=== PATIENT | male | born 1990 | race Two or more races ===

== ENCOUNTER 2024-06-25 13:48 | Inpatient (IN) | payer MEDICAID, SELFPAY ==
[2024-06-25] VITALS (7 sets, daily range): BP systolic 118–134; BP diastolic 61–83; PULSE 73–82; RESP 16–20; TEMP 36.7–37; O2SAT 95–100; BMI 35.6; BMI 36.6
--- NOTE | 2024-06-25 14:02 | XR_ITS ---
Examination: CT abdomen and pelvis without contrast. Coronal 3-D reconstructions. Sagittal 2-D reconstructions. Date and time of exam:June 25, 2024 1527 hours INDICATIONS: Upper abdominal pain epigastric pain beginning 2 hours ago CTDI: vol (mGy): 10.3 DLP: (mGycm): 690 Technique: Axial images of the abdomen have been obtained, 3 mm slice thickness Intravenous contrast material has not been administered. Low dose protocols were performed. One or more of the following dose reduction techniques were used; automated exposure control, adjustment of the mA and/or KV according to patient size, use of iterative reconstruction technique. Findings: Diffuse fatty infiltration throughout the liver Small retrocardiac gastric hernia Spleen is not enlarged No pancreatic mass Suspicious for mild edema surrounding the pancreas No renal or ureteral calculi, no hydronephrosis Aorta normal size 20 mm fat-containing umbilical hernia No pericecal inflammatory change No bowel obstruction Contracted urinary bladder No prostatomegaly The osseous structures are intact IMPRESSION: Suspicious for mild acute pancreatitis, consider MRCP follow-up
--- NOTE | 2024-06-25 14:03 | PD.EDRME ---
Rapid Medical Screening Exam RME Arrival date/time: 06/25/24 13:48 33-year-old male presents to the emergency department complaints of generalized abdominal pain Chief Complaint: Abdominal Pain Time Seen by Provider: 06/25/24 13:59
[2024-06-25] MEDS: METOCLOPRAMIDE 5 MG TABLET 10 MG PO (14:09)
[2024-06-25] MEDS: HYDROcodone/APAP 5/325 TABLET 1 TAB PO (14:09)
[2024-06-25 14:37] LABS: Basophils % (Auto) 0 % (0-2.5); Eosinophils # (Auto) 0.1 Thou/mm3 (0.0-0.5); Eosinophils % (Auto) 0 % (0-10); Hematocrit 44.8 % (41.0-53.0); Immature Granulocytes % (Auto) 0 % (0-0); Immature Granulocytes Auto 0.04 Thou/mm3 (0.00-0.00); Lymphocytes # (Auto) 1.8 Thou/mm3 (1.0-4.8); Lymphocytes % (Auto) 13 % (10-50); Mean Corpuscular HGB Conc 35.7 g/dl (31.0-37.0); Mean Corpuscular Hemoglobin 30.3 pg (25.0-35.0); Mean Corpuscular Volume 85 fL (80-100); Monocytes # (Auto) 0.7 Thou/mm3 (0.0-0.8); Monocytes % (Auto) 5 % (0-12); Neutrophils % (Auto) 81 % (37-80); Nucleated Red Blood Cell % 0 /100 WBC (0); Platelet Count 295 Thou/mm3 (140-440); RDW Standard Deviation 37.8 fL (35.1-43.9); Red Blood Count 5.28 Miln/mm3 (4.50-5.90); White Blood Count 13.6 Thou/mm3 (3.8-10.6)
[2024-06-25 14:59] LABS: Collection Type, Urine Clean Catch; Squamous Epithelial Cell,Urine 0 /hpf (0-5)
[2024-06-25 15:07] LABS: Alanine Aminotransferase 246 U/L (10-49); Albumin, Serum 5.1 gm/dL (3.5-5.0); Albumin/Globulin Ratio 1.8 (1.2-2.2); Alkaline Phosphatase 135 U/L (46-116); Anion Gap 9 (7-16); Aspartate Amino Transferase 249 U/L (0-34); BUN/Creatinine Ratio 14 Ratio (12-20); Blood Urea Nitrogen 14 mg/dL (9-23); Calcium 9.7 mg/dL (8.3-10.6); Calcium (Corrected) 9.7 mg/dL (8.5-10.1); Carbon Dioxide 26.6 mMol/L (20.0-31.0); Chloride 103 mMol/L (98-107); Estimated Creatinine Clearance 118.2 mL/min (>60); Globulin 2.9 gm/dL (2.3-3.5); Glucose 155 mg/dL (74-106); Lipase > 3500 U/L (12-53); Osmolality,Calculated 281 (275-295); Potassium 3.6 mMol/L (3.4-5.1); Sodium 139 mMol/L (136-145); eGFR > 60 See Note
[2024-06-25 15:35] LABS: Amphetamine/Methamp Scrn,U Negative (Negative); Barbiturate Screen,Urine Negative (Negative); Benzodiazepines Screen,Urine Negative (Negative); Benzoylecgonine Screen, Ur Negative (Negative); Bilirubin,Urine Negative (Negative); Blood,Urine Negative (Negative); Clarity,Urine Clear (Clear/Hazy); Color,Urine Yellow (Lt Yel-Yel); Culture Indicated,Urine Not Indicated; Fentanyl Screen,Urine Negative (Negative); Glucose, Urine Negative (Negative); Ketones,Urine Negative (Negative); Leukocyte Esterase,Urine Negative (Negative); Nitrite,Urine Negative (Negative); Opiate Screen,Urine Negative (Negative); Protein,Urine 1+ (Neg - Trace); RBC,Urine 5 /hpf (0-3); Specific Gravity,Urine 1.028 (1.001-1.035); THC Screen,Urine Negative (Negative); WBC,Urine 3 /hpf (0-5)
[2024-06-25 16:18] LABS: Alcohol, Blood Medical < 3.0 mg/dL (0-10.0)
--- NOTE | 2024-06-25 18:07 | EDNOTE_ITS ---
ED General RME/HPI General Chief complaint: Abdominal Pain Stated complaint: ABD PAIN Time Seen by Provider: 06/25/24 13:59 Arrival date/time: 06/25/24 13:48 CC: Left upper quadrant abdominal pain with nausea vomiting HPI onset approximately 10 AM this morning, and a prior episode 1 week ago was seen at another facility was told he had gastritis discharged home with medications which provided no relief. The patient denies any alcohol other than weekends, patient denies smoking or street drugs. at bedside confirms this. Patient takes no chronic medications. Denies fever shortness of breath or difficulty breathing. Is complaining of pain radiating up into the chest. Currently pain is 8 to a 10 on a 10 scale. Patient is not diaphoretic. But clearly uncomfortable. RME / HPI RME / HPI narrative: 06/25/24 13:48 33-year-old male presents to the emergency department complaints of generalized abdominal pain Related Data Allergies Allergy/AdvReac Type Severity Reaction Status Date / Time No Known Allergies Allergy Verified 06/25/24 13:49 Review of Systems Review of Systems Narrative Review of Systems: GEN: No fever, no chills, no weight loss EYES: No discharge, no visual changes, no pain HEENT: No ear pain, no congestion, no sore throat PULM: No shortness of breath, no cough, no congestion CV: No chest pain, no dyspnea on exertion, no palpitations GI: No nausea, no vomiting, no diarrhea, + pain, no constipation : No frequency, no urgency, no dysuria MUSC/SKEL: No joint pain, no back pain SKIN: No rash PSYCH: No hallucinations, no depression HEME/LYMPH: No easy bleeding or bruising tendencies NEURO: No weakness, no headache Past Medical History Social History SMOKING STATUS: Never smoker ED Exam Narrative Physical exam: [General: Obese not in any acute distress Head normocephalic HEENT: Within acceptable limits Neck is supple nontender Chest equal chest rise nontender to palpation Respiratory: Clear to auscultation no wheezes crackles or rubs CV: Rate rhythm is regular no murmurs rubs or clicks Abdomen left upper quadrant exquisite tenderness with palpation reflexive guarding but no rebound tenderness, no right upper quadrant or lower abdomen pain with palpation. Back: No CVA tenderness no spinous process tenderness from cervical spine thoracic and lumbar spine Skin: Intact no petechiae rash induration ulceration or crepitus Extremities: Moving all extremity against resistance cap refill less than 2 seconds neurosensory intact Neuro: Awake alert oriented x3 Glascow coma 15 no focal deficits] Course Quality Measures none Orders Category Date Time Status Saline [Insert IV] NOW Care 06/25/24 18:[address] abdomen pelvis wo con Stat Exams 06/25/24 14:02 Completed US gall bladder Routine Exams 06/25/24 19:58 Ordered Alcohol, Blood Medical Stat Lab 06/25/24 14:15 Completed CBC Stat Lab 06/25/24 14:15 Completed Comprehensive Metabolic Panel Stat Lab 06/25/24 14:15 Completed Drug Screen,Urine Stat Lab 06/25/24 14:30 Completed Lipase Stat Lab 06/25/24 14:15 Completed Lipid Panel Stat Lab 06/25/24 14:15 Completed UA, C/S IF [Urinalysis, C/S if Indicated] Stat Lab 06/25/24 14:30 Completed HYDROcodone*/APAP 5/325 [[place] 5/325] Med 06/25/24 14:02 Discontinued 1 tab PO X1 ONE Metoclopramide [Reglan] Med 06/25/24 14:02 Discontinued 10 mg PO X1 ONE Morphine Inj Med 06/25/24 18:05 Discontinued 6 mg IVP X1 ONE Ondansetron Inj [Zofran Inj] Med 06/25/24 18:05 Discontinued 4 mg IV X1 ONE Sodium Chloride 0.9% 1000 ml [Ns] 1,000 ml Med 06/25/24 18:06 Active IV 125 mls/hr Sodium Chloride 0.9% 1000 ml [Ns] 1,000 ml Med 06/25/24 18:05 Discontinued IV 999 mls/hr Vital Signs Vital signs: Vital Signs Temperature 98.0 F 06/25/24 14:03 Pulse Rate 82 06/25/24 14:03 Respiratory Rate 16 06/25/24 14:03 Blood Pressure 134/82 H 06/25/24 14:03 Pulse Oximetry (%) 95 06/25/24 14:03 Oxygen Delivery Method Room Air 06/25/24 14:03 [facility] Patient data External records reviewed:: [facility] previous records Clinical information provided by:: patient Social determinants that could affect healthcare access:: none Patient has the following chronic illnesses:: None How is presenting disease/condition affected by chronic disease/condition?: u neffected by Evaluation data The following diagnostics were reviewed and interpreted by me:: lab results and radiology exam(s) Lab and/or radiology exams considered but not ordered:: CBC shows mild leukocytosis of 13.6, no anemia thrombocytopenia CMP shows no electrolyte imbalances renal impairment transaminitis is elevated with an AST of 249 ALT of 246 and alk phos of 135 total bili is 1.0. Lipase is greater than 3500. Urine is negative with the exception of 1+ protein. UDS is negative. CT shows pancreatitis Interpretation Summary: Acute pancreatitis. Patient's case discussed with Dr. Bae, for Dr. Humphrey who agrees to accept the patient for admission. Patient is in agreement with this plan Medications Medications considered but not ordered:: None Medication administrations:: Medication Administration History Sodium Chloride (Ns) 1,000 mls @ 125 mls/hr IV .Q8H TY Stop: 07/25/24 18:05 Last Admin: 06/25/24 18:33 Dose: 125 mls/hr Documented By: SHOAIB Discontinued Medications Hydrocodone Bitart/Acetaminophen (Hydrocodone/Apap 5/325 Tablet) 1 tab PO X1 ONE Stop: 06/25/24 14:03 Last Admin: 06/25/24 14:09 Dose: 1 tab Documented By: SHOAIB Sodium Chloride (Ns) 1,000 mls @ 999 mls/hr IV .Q1H1M ONE Stop: 06/25/24 19:05 Last Infusion: 06/25/24 19:46 Dose: Infused Documented By: Admin: 06/25/24 18:29 Dose: 999 mls/hr Documented By: SHOAIB Metoclopramide HCl (Metoclopramide 5 Mg Tablet) 10 mg PO X1 ONE Stop: 06/25/24 14:03 Last Admin: 06/25/24 14:09 Dose: 10 mg Documented By: SHOAIB Morphine Sulfate (Morphine Sulf Inj 10 Mg/Ml Vial) 6 mg IVP X1 ONE Stop: 06/25/24 18:06 Last Admin: 06/25/24 18:29 Dose: 6 mg Documented By: SHOAIB Ondansetron HCl (Ondansetron Inj 2 Mg/Ml Inj 2 Ml) 4 mg IV X1 ONE; Protocol Stop: 06/25/24 18:06 Last Admin: 06/25/24 18:29 Dose: 4 mg Documented By: RD None Consultations Consultation(s) initiated? (list below): No Diagnosis Differential Diagnosis ED Complaint MDM: Pancreatitis, left upper quadrant abdominal pain leukocytosis Most likely diagnosis given after review of the tests above:: Pancreatitis, left upper quadrant abdominal pain Admission Indicated Admission indicated?: indicated Explain why admission is indicated or not indicated:: Quires further medical management Admission Request Was there a request for admission?: No Disposition Plan Disposition Plan: Admit Medical Decision Making Differential Diagnosis Differential Diagnosis: Pancreatitis, left upper quadrant abdominal pain leukocytosis Lab Data 06/25/24 14:15 06/25/24 14:15 Labs: Lab Results 06/25/24 06/25/24 Range/Units 14:15 14:30 WBC 13.6 H (3.8-10.6) Thou/mm3 RBC 5.28 (4.50-5.90) Miln/mm3 Hgb 16.0 (13.5-16.0) g/dL Hct 44.8 (41.0-53.0) % MCV 85 (80-100) fL MCH 30.3 (25.0-35.0) pg MCHC 35.7 (31.0-37.0) g/dl RDW Std Deviation 37.8 (35.1-43.9) fL Plt Count 295 (140-440) Thou/mm3 Neut % (Auto) 81 H (37-80) % Lymph % (Auto) 13 (10-50) % Morris % (Auto) 5 (0-12) % Eos % (Auto) 0 (0-10) % Baso % (Auto) 0 (0-2.5) % Neut # (Auto) 11.0 H (1.8-7.7) Thou/mm3 Lymph # (Auto) 1.8 (1.0-4.8) Thou/mm3 Morris # (Auto) 0.7 (0.0-0.8) Thou/mm3 Eos # (Auto) 0.1 (0.0-0.5) Thou/mm3 Baso # (Auto) 0.0 (0.0-0.2) Thou/mm3 Immature Gran # (Auto) 0.04 H (0.00-0.00) Thou/mm3 Absolute Nucleated RBC 0.00 (0.00-0.00) Thou/mm3 Immature Gran % 0 (0-0) % Nucleated RBC % 0 (0) /100 WBC Sodium 139 (136-145) mMol/L Potassium 3.6 (3.4-5.1) mMol/L Chloride 103 (98-107) mMol/L Carbon Dioxide 26.6 (20.0-31.0) mMol/L Anion Gap 9 (7-16) BUN 14 (9-23) mg/dL Creatinine 1.0 (0.6-1.3) mg/dL Estim Creat Clear Calc 118.2 (>60) mL/min eGFR > 60 (60 - ) See Note BUN/Creatinine Ratio 14 (12-20) Ratio Glucose 155 H (74-106) mg/dL Calculated Osmolality 281 (275-295) Calcium 9.7 (8.3-10.6) mg/dL Corrected Calcium 9.7 (8.5-10.1) mg/dL Total Bilirubin 1.0 (0.3-1.2) mg/dL AST 249 H (0-34) U/L ALT 246 H (10-49) U/L Alkaline Phosphatase 135 H (46-116) U/L Total Protein 8.0 (5.7-8.2) gm/dL Albumin 5.1 H (3.5-5.0) gm/dL Globulin 2.9 (2.3-3.5) gm/dL Albumin/Globulin Ratio 1.8 (1.2-2.2) Triglycerides 335 H (30-150) mg/dL Cholesterol 252 H (132-200) mg/dL LDL Cholesterol, Calc 145 H (0-130) mg/dL HDL Cholesterol 40 (40-60) mg/dL Cholesterol/HDL Ratio 6.3 (4.0-6.7) RATIO Lipase > 3500 H* (12-53) U/L Ur Collection Type Clean Catch Urine Color Yellow (Lt Yel-Yel) Urine Clarity Clear (Clear/Hazy) Urine pH 6.0 (5.0-7.0) Ur Specific [place] 1.028 (1.001-1.035) Urine Protein 1+ A (Neg - Trace) Urine Glucose (UA) Negative (Negative) Urine Ketones Negative (Negative) Urine Blood Negative (Negative) Urine Nitrite Negative (Negative) Urine Bilirubin Negative (Negative) Urine Urobilinogen (Auto) 2.0 (0.0-1.0) mg/dL Ur Leukocyte Esterase Negative (Negative) Urine RBC 5 H (0-3) /hpf Urine WBC 3 (0-5) /hpf Ur Squamous Epith Cells 0 (0-5) /hpf Urine Bacteria None (None) Ur Culture Indicated? Not Indicated Urine Opiates Screen Negative (Negative) Urine Fentanyl Screen Negative (Negative) Ur Barbiturates Screen Negative (Negative) U Amphetamin/Meth Scrn Negative (Negative) U Benzodiazepines Scrn Negative (Negative) U Cocaine Metab Screen Negative (Negative) U Marijuana (THC) Screen Negative (Negative) Ethyl Alcohol < 3.0 (0-10.0) mg/dL Discharge Plan Plan Patient Disposition: Other Care w/in Hosp ([facility]) Patient condition on transfer: Stable Prescriptions/Referrals Referrals: Benjamin Trevino MD [Primary Care Provider] - In 1 week Problem List Clinical Impression: Pancreatitis, Abdominal pain, acute, left upper quadrant Patient/Caregiver Discharge Instructions Print Language: Ivorian Stand Alone Forms: Iveth Award Info., Patient Portal Info Letter RAUL/BERTHA Supervising Physician RAUL/BERTHA Supervising Physician: Gunnar Velasco ENP
[2024-06-25] MEDS: ONDANSETRON INJ 2 MG/ML INJ 2 ML 4 MG IV ×2 (18:29→21:33)
[2024-06-25] MEDS: SODIUM CHLORIDE 0.9% 1000 ML 1,000 ML 999 ML IV (18:29)
[2024-06-25] MEDS: MORPHINE SULF INJ 10 MG/ML VIAL 6 MG IVP (18:29)
[2024-06-25] MEDS: SODIUM CHLORIDE 0.9% 1000 ML 1,000 ML 125 ML IV (18:33)
[2024-06-25 19:21] LABS: Cardiac Risk Estimate 6.3 RATIO (4.0-6.7); Cholesterol 252 mg/dL (132-200); HDL Cholesterol 40 mg/dL (40-60); LDL Cholesterol,Calculated 145 mg/dL (0-130); Triglycerides 335 mg/dL (30-150)
--- NOTE | 2024-06-25 19:58 | XR_ITS ---
Examination: Abdomen sonogram, Limited Date and time of exam: June 25, 2024 2110 hrs. Indications: Epigastric pain with tenderness today including elevated liver function tests on laboratory examination today Technique: Real-time perry scale transabdominal sonographic images of the upper abdomen obtained. Findings: Cholelithiasis Gallbladder wall 0.3 cm no edema Common bile duct 0.7 cm Pancreas obscured by bowel gas Liver 18.3 cm fatty infiltration Normal hepatopedal portal venous flow Patent IVC Impression: Cholelithiasis, negative for cholecystitis Abnormal enlargement common bile duct 0.7 cm, consider MRCP follow-up to exclude common bile duct stones
--- NOTE | 2024-06-25 20:30 | ESHP_ITS ---
Documentation for date of: 06/25/24 HPI History of Present Illness Chief complaint: Abdominal pain History of present illness: 33-year-old male with no significant past medical history presented to the hospital with chief complaints of abdominal pain since 1 day. Patient was apparently normal 1 day ago, on the day of admission patient developed severe abdominal pain, mainly on the left side and middle of the abdomen, associated with 1 episode of vomiting which is bilious. Endorsed that the pain is radiating to right side of abdomen with no radiation to back. No aggravating or relieving factors. Denies fever, vomiting, diarrhea, chest pain, palpitations, shortness of breath, constipation, relationship with food intake. Patient had past history of abdominal pain since 5 to 6 months which is mainly located in the epigastric region, burning type, aggravated with food intake but endorsed that this new pain is different from the pain that he used to have during the last 5 to 6 months. Endorsed that he used to take ibuprofen once in a while. Last alcohol drink was 4 or 5 days ago ED Course: -Initial vitals were blood pressure 134/82 mmHg, pulse rate 82 bpm, respiratory rate 16/min, temperature 98 ?F, SpO2 95% with room air -Labs significant for WBC 13.6, glucose 155, AST 249, ALT 246, ALP 135, LDH 220, triglycerides 335, cholesterol 252, LDL 145, lipase > 3500. Urinalysis showed 1+ proteinuria, 5 RBC. Urine tested negative for toxicology. -CT abdomen/pelvis showed suspicion for mild acute pancreatitis. Gallbladder ultrasound showed cholelithiasis with CBD of 0.7 cm -In the ED, patient was given IV fluids and morphine -Patient was admitted for acute pancreatitis Past medical history: Nonsignificant Past surgical history: not significant Social history: Drinks once in a week, about 10-14 beers in 1 sitting, denies smoking, marijuana, other illicit drug abuse. Review of Systems Review of Systems Systems Reviewed: All systems reviewed, normal except as documented Exam Vital Signs Temp Pulse Resp BP Pulse Ox O2 Del Method 98.6 F 73 18 126/80 97 Room Air 06/25/24 19:17 06/25/24 19:17 06/25/24 19:17 06/25/24 19:17 06/25/24 19:17 06/25/24 19:17 Narrative Exam General: Awake. HEENT: Normocephalic, atraumatic, mucous membranes moist. Heart: Regular rate and rhythm, no murmurs. Lungs: Clear to auscultation with no wheezing or crackles. Abdomen: Soft, nondistended, tenderness in the epigastric region, positive bowel sounds. ?No guarding or rebound tenderness. Neurologic: Alert and oriented x3, no gross neurological deficit, and patient able to move all 4 extremities. Extremities: No edema. Skin: No rash or ecchymoses. Results: Labs 06/25/24 14:15 06/25/24 14:15 Labs: Short CBC 06/25/24 Range/Units 14:15 WBC 13.6 H (3.8-10.6) Thou/mm3 Hgb 16.0 (13.5-16.0) g/dL Hct 44.8 (41.0-53.0) % Plt Count 295 (140-440) Thou/mm3 BMP 06/25/24 14:15 Sodium 139 Potassium 3.6 Chloride 103 Carbon Dioxide 26.6 BUN 14 Creatinine 1.0 Glucose 155 H Calcium 9.7 Liver Function 06/25/24 Range/Units 14:15 Total Bilirubin 1.0 (0.3-1.2) mg/dL AST 249 H (0-34) U/L ALT 246 H (10-49) U/L Alkaline Phosphatase 135 H (46-116) U/L Albumin 5.1 H (3.5-5.0) gm/dL Urine 06/25/24 Range/Units 14:30 Urine Color Yellow (Lt Yel-Yel) Urine Clarity Clear (Clear/Hazy) Urine pH 6.0 (5.0-7.0) Ur Specific [place] 1.028 (1.001-1.035) Urine Protein 1+ A (Neg - Trace) Urine Glucose (UA) Negative (Negative) Quality Measures Quality Measures none Medications Home Medications and Allergies Allergies Allergy/AdvReac Type Severity Reaction Status Date / Time No Known Allergies Allergy Verified 06/25/24 13:49 Visit Medications Acetaminophen (Acetaminophen 325 Mg Tablet) 650 mg PO Q6H PRN PRN Reason: Fever >101.5 Stop: 07/25/24 20:25 Sodium Chloride (Ns) 1,000 mls @ 125 mls/hr IV .Q8H TY Stop: 07/25/24 18:05 Last Admin: 06/25/24 18:33 Dose: 125 mls/hr Morphine Sulfate (Morphine Sulf Inj 10 Mg/Ml Vial) 2 mg IVP Q4H PRN PRN Reason: PAIN SCALE 7-10 (Severe Stop: 06/30/24 20:25 Ondansetron HCl (Ondansetron Inj 2 Mg/Ml Inj 2 Ml) 4 mg IV Q6H PRN; Protocol PRN Reason: NAUSEA OR VOMITING Stop: 07/25/24 20:25 Discontinued Medications Hydrocodone Bitart/Acetaminophen (Hydrocodone/Apap 5/325 Tablet) 1 tab PO X1 ONE Stop: 06/25/24 14:03 Last Admin: 06/25/24 14:09 Dose: 1 tab Sodium Chloride (Ns) 1,000 mls @ 999 mls/hr IV .Q1H1M ONE Stop: 06/25/24 19:05 Last Infusion: 06/25/24 19:46 Dose: Infused Metoclopramide HCl (Metoclopramide 5 Mg Tablet) 10 mg PO X1 ONE Stop: 06/25/24 14:03 Last Admin: 06/25/24 14:09 Dose: 10 mg Morphine Sulfate (Morphine Sulf Inj 10 Mg/Ml Vial) 6 mg IVP X1 ONE Stop: 06/25/24 18:06 Last Admin: 06/25/24 18:29 Dose: 6 mg Ondansetron HCl (Ondansetron Inj 2 Mg/Ml Inj 2 Ml) 4 mg IV X1 ONE; Protocol Stop: 06/25/24 18:06 Last Admin: 06/25/24 18:29 Dose: 4 mg Assessment & Plan Plan A 33-year-old male with no significant past medical history presented with abdominal pain and admitted for acute pancreatitis # Mild acute pancreatitis # Secondary to alcohol # Leukocytosis, likely reactive -Presented with pain abdomen since 1 day -Associated with vomiting -Vitals are stable at the time of admission except for mildly elevated blood pressure 134/82 mmHg -Physical examination showed tenderness in the epigastric region -Labs showed elevated WBC 13.6, lipase > 3500 -CT abdomen/pelvis showed mild acute pancreatitis -[place] score 0 at the time of admission, re evaluate at 48hrs -Modified Artur score is 0 Plan -Started on IV fluids, LR at 150 mL/h -Dilaudid 0.5 Mg as needed every 4th hrly -N.p.o. for now -Ondansetron as needed -Restart diet if pain is decreasing -Counseled on alcohol cessation # Mild transaminitis -AST and ALT are mildly elevated, likely in the setting of acute pancreatitis -Total bilirubin is within normal limits and ALP is 135 -Gallbladder ultrasound showed cholelithiasis without cholecystitis and CBD of 0.7 mm -On examination, patient does not have any right upper quadrant tenderness or Walsh sign, less likely CBD obstruction # Dyslipidemia -Triglyceride is 335, cholesterol 252, LDL 145 -Start atorvastatin 40 Mg on outpatient basis -Lifestyle modification Hospital Maintenance: Dispo: medsurg DVT ppx: SCD GI ppx: not needed Diet: n.p.o for now IV lines: peripheral Code status: Full Patient plan of care was discussed with the attending physician, Dr. Kam Workman, PGY1 Attending Provider Attestation/Addendum I have discussed and was present for the essential components of the history, physical examination, diagnosis, and treatment plan with the resident. I agree with the patient's care as documented by the resident and amended herein by me. Tonio Humphrey DO. Patient seen and evaluated in the ED. 33-year-old male with no reported past medical history presented to hospital with abdominal pain which began approximate 1 day prior to admission. Associated with a single episode of bilious vomiting, no hematemesis reported. Denies fever, diarrhea, chills, chest pain, palpitations etc. Patient does report a more chronic history of epigastric pain in the last 5 to 6 months described as burning and worsened with p.o. intake however this pain is worse and characterized a bit differently. Patient does not use ibuprofen or aspirin chronically nor is he on steroids however does endorse occasional alcohol use on weekends.. Patient had found to have acute pancreatitis on imaging, subsequently admitted for treatment. In the ED, vital signs stable, patient afebrile, CBC remarkable for WBC of 13.6, BMP largely unremarkable, lipid panel demonstrated a triglyceride level 355, lipase greater than 3000, transaminitis was also present with an AST of 249, ALT 246, alk phos 135 and a normal T. bili of 1.0. CT abdomen pelvis demonstrating pancreatitis, UA negative, U tox negative. Patient given 1 L bolus in the ED and then started on 125 mL/h of NS. Significant problems list: #Acute pancreatitis, likely EtOH induced. BISAP score 0 Will continue moderate fluids, LR 150 mL/h. Strict I's and O's ordered. Right upper quadrant ultrasound ordered. Pain control. I do not think we need CIWA as of yet however will monitor for signs of withdrawal closely. Although this document has been carefully reviewed, there may still be some phonetic and other typographical errors. These errors are purely grammatical due to imperfections in the software program and should not be construed in any way to compromise the substance of the patient's medical care during this visit.
[2024-06-25] MEDS: RINGERS LACTATED 1000 ML 1,000 ML 150 ML IV (21:20)
[2024-06-25] MEDS: HYDROmorphone INJ 2 MG/ML VIAL 0.5 MG IVP (21:33)
[2024-06-25 21:39] LABS: LDH (Lactate Dehydrogenase) 220 U/L (120-246)
[2024-06-26] VITALS (8 sets, daily range): BP systolic 99–115; BP diastolic 56–80; PULSE 72–93; RESP 15–18; TEMP 36.3–37.4; O2SAT 83–96
[2024-06-26] MEDS: RINGERS LACTATED 1000 ML 1,000 ML 150 ML IV ×4 (04:32→23:55)
[2024-06-26 06:08] LABS: Basophils % (Auto) 0 % (0-2.5); Eosinophils # (Auto) 0.1 Thou/mm3 (0.0-0.5); Eosinophils % (Auto) 1 % (0-10); Hematocrit 41.8 % (41.0-53.0); Hemoglobin 14.2 g/dL (13.5-16.0); Immature Granulocytes % (Auto) 0 % (0-0); Immature Granulocytes Auto 0.03 Thou/mm3 (0.00-0.00); Lymphocytes # (Auto) 1.2 Thou/mm3 (1.0-4.8); Lymphocytes % (Auto) 12 % (10-50); Mean Corpuscular Hemoglobin 29.9 pg (25.0-35.0); Mean Corpuscular Volume 88 fL (80-100); Monocytes # (Auto) 0.8 Thou/mm3 (0.0-0.8); Monocytes % (Auto) 8 % (0-12); Neutrophils # (Auto) 8.2 Thou/mm3 (1.8-7.7); Neutrophils % (Auto) 79 % (37-80); Nucleated Red Blood Cell % 0 /100 WBC (0); Platelet Count 242 Thou/mm3 (140-440); RDW Standard Deviation 41.1 fL (35.1-43.9); Red Blood Count 4.75 Miln/mm3 (4.50-5.90); White Blood Count 10.4 Thou/mm3 (3.8-10.6)
[2024-06-26] MEDS: HYDROmorphone INJ 2 MG/ML VIAL 0.5 MG IVP ×4 (06:24→21:19)
[2024-06-26 06:51] LABS: Alanine Aminotransferase 181 U/L (10-49); Albumin, Serum 4.3 gm/dL (3.5-5.0); Albumin/Globulin Ratio 1.8 (1.2-2.2); Alkaline Phosphatase 112 U/L (46-116); Anion Gap 7 (7-16); Aspartate Amino Transferase 78 U/L (0-34); BUN/Creatinine Ratio 16 Ratio (12-20); Bilirubin,Total 0.9 mg/dL (0.3-1.2); Blood Urea Nitrogen 11 mg/dL (9-23); Calcium 8.8 mg/dL (8.3-10.6); Calcium (Corrected) 8.8 mg/dL (8.5-10.1); Carbon Dioxide 28.2 mMol/L (20.0-31.0); Chloride 104 mMol/L (98-107); Creatinine (Component) 0.7 mg/dL (0.6-1.3); Estimated Creatinine Clearance 171.1 mL/min (>60); Globulin 2.4 gm/dL (2.3-3.5); Glucose 100 mg/dL (74-106); Osmolality,Calculated 276 (275-295); Potassium 3.7 mMol/L (3.4-5.1); Sodium 139 mMol/L (136-145); Thyroid Stimulating Hormone 3.27 uIU/mL (0.55-4.78); Total Protein 6.7 gm/dL (5.7-8.2); eGFR > 60 See Note
--- NOTE | 2024-06-26 16:39 | PD.RESPRO ---
Documentation for date of: 06/26/24 Subjective Subjective Interval history: The patient reported doing well, and reported having mild epigastric pain. He denied any SOB, chest pain, nausea or vomiting. He is tolerating clear liquid diet well. Exam Vital Signs Temp Pulse Resp BP Pulse Ox O2 Del Method 98.8 F 81 18 111/67 96 Room Air 06/26/24 11:54 06/26/24 11:54 06/26/24 11:54 06/26/24 11:54 06/26/24 11:54 06/26/24 11:54 Narrative Exam General: No acute distress, Alert and Oriented x 3 HEENT: Moist mucous membranes, oropharynx clear Neck: Supple, No masses, No JVD CVS: S1S2 Regular rate and rhythm, No murmurs, rubs or gallops Lungs: Clear to auscultation with no accessory use, no wheeze no rhonchi Abd: Soft, NT/ND, +BS, no organomegaly Ext: No edema, warm and well perfused Skin: No rash Psych: Appropriate mood and affect Objective Labs 06/27/24 05:11 06/27/24 05:11 Labs: Laboratory Results - last 24 hr 06/25/24 06/25/24 06/26/24 14:15 21:09 04:37 WBC 10.4 RBC 4.75 Hgb 14.2 Hct 41.8 MCV 88 MCH 29.9 MCHC 34.0 RDW Std Deviation 41.1 Plt Count 242 D Neut % (Auto) 79 Lymph % (Auto) 12 [place] % (Auto) 8 Eos % (Auto) 1 Baso % (Auto) 0 Neut # (Auto) 8.2 H Lymph # (Auto) 1.2 [place] # (Auto) 0.8 Eos # (Auto) 0.1 Baso # (Auto) 0.0 Immature Gran # (Auto) 0.03 H Absolute Nucleated RBC 0.00 Immature Gran % 0 Nucleated RBC % 0 Sodium 139 Potassium 3.7 Chloride 104 Carbon Dioxide 28.2 Anion Gap 7 BUN 11 Creatinine 0.7 Estim Creat Clear Calc 171.1 eGFR > 60 BUN/Creatinine Ratio 16 Glucose 100 D Calculated Osmolality 276 Lactic Acid 1.0 Calcium 8.8 Corrected Calcium 8.8 Total Bilirubin 0.9 AST 78 H ALT 181 H Alkaline Phosphatase 112 D Lactate Dehydrogenase 220 Total Protein 6.7 Albumin 4.3 D Globulin 2.4 Albumin/Globulin Ratio 1.8 Triglycerides 335 H Cholesterol 252 H LDL Cholesterol, Calc 145 H HDL Cholesterol 40 Cholesterol/HDL Ratio 6.3 TSH 3.27 Quality Measures Quality Measures none Assessment & Plan Assessment Current Active Medications: Generic Name Dose Route Start Last Admin Trade Name Freq PRN Reason Stop Dose Admin Acetaminophen 650 mg 06/26/24 09:11 Acetaminophen 325 Mg Tablet PO 07/25/24 20:25 Q6H PRN Fever >100.3 Hydromorphone HCl 0.5 mg 06/25/24 20:46 06/26/24 11:34 Hydromorphone Inj 2 Mg/Ml Vial IVP 06/30/24 20:45 0.5 mg Q4HR PRN Administration Pain 6-10 Lactated Ringer's 1,000 mls @ 150 mls/hr 06/25/24 20:44 06/26/24 10:29 Lactated Ringers IV 07/25/24 20:43 150 mls/hr .Q6H40M TY Administration Ondansetron HCl 4 mg 06/25/24 20:26 06/25/24 21:33 Ondansetron Inj 2 Mg/Ml Inj 2 Ml IV 07/25/24 20:25 4 mg Q6H PRN Administration NAUSEA OR VOMITING Protocol Plan The patient is a 33 YO M with no PMH presented with abdominal pain and nausea after having binge drinking 3 days back was found to have acute pancreatitis. # Acute pancreatitis 2/2 binge drinking -Presented with pain abdomen since 1 day -Associated with vomiting -Vitals are stable at the time of admission except for mildly elevated blood pressure 134/82 mmHg -Physical examination showed tenderness in the epigastric region -Labs showed elevated WBC 13.6, lipase > 3500 -CT abdomen/pelvis showed mild acute pancreatitis -[place] score 0 at the time of admission, re evaluate at 48hrs -Modified Artur score is 0 Plan -Started on IV fluids, LR at 150 mL/h -Dilaudid 0.5 Mg as needed every 4th hrly -Clear liquid diet, advance as tolerated -Ondansetron as needed -Counseled on alcohol cessation # Mild transaminitis -AST and ALT are mildly elevated, likely in the setting of acute pancreatitis -Total bilirubin is within normal limits and ALP is 135 -Gallbladder ultrasound showed cholelithiasis without cholecystitis and CBD of 0.7 mm -On examination, patient does not have any right upper quadrant tenderness or Walsh sign, less likely CBD obstruction # Dyslipidemia -Triglyceride is 335, cholesterol 252, LDL 145 -Start atorvastatin 40 Mg on outpatient basis -Lifestyle modification Hospital Maintenance: Dispo: medsurg DVT ppx: SCD GI ppx: not needed Diet: Clear liquid diet, advance as tolerated IV lines: peripheral Code status: Full The case was discussed with my attending MD Raymond Marr MD PGY2 Internal Medicine Attending Provider Attestation/Addendum 32-year-old male patient with alcohol use was admitted for abdominal pain nausea vomiting. Patient has elevated lipase.. Patient has alcoholic pancreatitis. Supportive treatment. IV fluids to be continued. Patient advised alcohol cessation. Patient voiced understanding with regards he is condition and plan of care
[2024-06-27] VITALS (8 sets, daily range): BP systolic 95–115; BP diastolic 53–70; PULSE 81–97; RESP 16–21; TEMP 36.8–37; O2SAT 93–96
[2024-06-27] MEDS: HYDROmorphone INJ 2 MG/ML VIAL 0.5 MG IVP ×2 (01:30→06:29)
[2024-06-27] MEDS: RINGERS LACTATED 1000 ML 1,000 ML 150 ML IV ×3 (06:03→20:34)
[2024-06-27 06:08] LABS: Basophils % (Auto) 0 % (0-2.5); Eosinophils # (Auto) 0.3 Thou/mm3 (0.0-0.5); Eosinophils % (Auto) 2 % (0-10); Hematocrit 41.8 % (41.0-53.0); Hemoglobin 14.5 g/dL (13.5-16.0); Immature Granulocytes % (Auto) 0 % (0-0); Immature Granulocytes Auto 0.04 Thou/mm3 (0.00-0.00); Lymphocytes # (Auto) 1.6 Thou/mm3 (1.0-4.8); Lymphocytes % (Auto) 16 % (10-50); Mean Corpuscular HGB Conc 34.7 g/dl (31.0-37.0); Mean Corpuscular Hemoglobin 30.5 pg (25.0-35.0); Mean Corpuscular Volume 88 fL (80-100); Monocytes # (Auto) 1.1 Thou/mm3 (0.0-0.8); Monocytes % (Auto) 11 % (0-12); Neutrophils # (Auto) 7.5 Thou/mm3 (1.8-7.7); Neutrophils % (Auto) 71 % (37-80); Nucleated Red Blood Cell % 0 /100 WBC (0); Platelet Count 232 Thou/mm3 (140-440); RDW Standard Deviation 39.8 fL (35.1-43.9); Red Blood Count 4.75 Miln/mm3 (4.50-5.90); White Blood Count 10.6 Thou/mm3 (3.8-10.6)
[2024-06-27 06:37] LABS: Alanine Aminotransferase 118 U/L (10-49); Albumin, Serum 4.5 gm/dL (3.5-5.0); Albumin/Globulin Ratio 1.8 (1.2-2.2); Alkaline Phosphatase 106 U/L (46-116); Anion Gap 8 (7-16); Aspartate Amino Transferase 34 U/L (0-34); BUN/Creatinine Ratio 10 Ratio (12-20); Blood Urea Nitrogen 8 mg/dL (9-23); Calcium 9.3 mg/dL (8.3-10.6); Calcium (Corrected) 9.3 mg/dL (8.5-10.1); Carbon Dioxide 27.6 mMol/L (20.0-31.0); Chloride 101 mMol/L (98-107); Creatinine (Component) 0.8 mg/dL (0.6-1.3); Estimated Creatinine Clearance 149.7 mL/min (>60); Globulin 2.5 gm/dL (2.3-3.5); Glucose 96 mg/dL (74-106); Osmolality,Calculated 272 (275-295); Potassium 3.4 mMol/L (3.4-5.1); Sodium 137 mMol/L (136-145); eGFR > 60 See Note
[2024-06-27] MEDS: POTASSIUM CHL 10 mEq IVPB 10 MEQ/100 ML BAG 100 MEQ IV ×4 (08:38→13:46)
--- NOTE | 2024-06-27 10:17 | PC.SS ---
Patient is alert/oriented. He resides with family. Patient is Setsw[place] speaking only. Service Support Representative used. Patient is independent with ADL's. Admitted for acute pancreatitis. Patient states he will d/c to: [id number], [place]. Patient states he cut back on his alcohol. He last drank anything 2 weeks ago. Patient pharmacy: [facility]. Patient states he follows at [facility]. His last appt was a month ago but wants to switch to another clinic. Patient states he only drinks alcohol on weekends. He declined any resources. Patient will d/c home with . No further d/c needs. remains alt medical decision maker.
--- NOTE | 2024-06-27 12:12 | ESPR_ITS ---
Documentation for date of: 06/27/24 Subjective Subjective Interval history: The patient reported doing fairly well this morning. However, he reported mild epigastric pain, and is requiring pain medication throughout the day and night. He reported tolerating clear liquid diet with occasional abdominal pain. We will continue with clear liquid diet, and by this afternoon we will try to start the patient on full liquid diet. Exam Vital Signs Temp Pulse Resp BP Pulse Ox O2 Del Method 98.2 F 90 21 H 115/70 93 L Room Air 06/27/24 08:00 06/27/24 08:00 06/27/24 08:00 06/27/24 08:00 06/27/24 08:00 06/27/24 08:00 Narrative Exam General: No acute distress, Alert and Oriented x 3 HEENT: Moist mucous membranes, oropharynx clear Neck: Supple, No masses, No JVD CVS: S1S2 Regular rate and rhythm, No murmurs, rubs or gallops Lungs: Clear to auscultation with no accessory use, no wheeze no rhonchi Abd: Soft, NT/ND, +BS, no organomegaly Ext: No edema, warm and well perfused Skin: No rash Psych: Appropriate mood and affect Objective Labs 06/28/24 04:35 06/28/24 04:35 Labs: Laboratory Results - last 24 hr 06/27/24 05:11 WBC 10.6 RBC 4.75 Hgb 14.5 Hct 41.8 MCV 88 MCH 30.5 MCHC 34.7 RDW Std Deviation 39.8 Plt Count 232 Neut % (Auto) 71 Lymph % (Auto) 16 [place] % (Auto) 11 Eos % (Auto) 2 Baso % (Auto) 0 Neut # (Auto) 7.5 Lymph # (Auto) 1.6 [place] # (Auto) 1.1 H Eos # (Auto) 0.3 Baso # (Auto) 0.0 Immature Gran # (Auto) 0.04 H Absolute Nucleated RBC 0.00 Immature Gran % 0 Nucleated RBC % 0 Sodium 137 Potassium 3.4 Chloride 101 Carbon Dioxide 27.6 Anion Gap 8 BUN 8 L Creatinine 0.8 Estim Creat Clear Calc 149.7 eGFR > 60 BUN/Creatinine Ratio 10 L Glucose 96 Calculated Osmolality 272 L Calcium 9.3 Corrected Calcium 9.3 Total Bilirubin 1.0 AST 34 ALT 118 H Alkaline Phosphatase 106 Total Protein 7.0 Albumin 4.5 Globulin 2.5 Albumin/Globulin Ratio 1.8 Quality Measures Quality Measures none Assessment & Plan Assessment Current Active Medications: Generic Name Dose Route Start Last Admin Trade Name Mumtazq PRN Reason Stop Dose Admin Acetaminophen 650 mg 06/26/24 09:11 Acetaminophen 325 Mg Tablet PO 07/25/24 20:25 Q6H PRN Fever >100.3 Hydromorphone HCl 0.5 mg 06/25/24 20:46 06/27/24 06:29 Hydromorphone Inj 2 Mg/Ml Vial IVP 06/30/24 20:45 0.5 mg Q4HR PRN Administration Pain 6-10 Lactated Ringer's 1,000 mls @ 150 mls/hr 06/25/24 20:44 06/27/24 06:03 Lactated Ringers IV 07/25/24 20:43 150 mls/hr .Q6H40M TY Administration Potassium Chloride 10 meq in 100 mls @ 100 mls/hr 06/27/24 08:27 06/27/24 11:33 Kcl Ivpb IV 06/27/24 12:26 100 mls/hr Q1H TY Administration Ondansetron HCl 4 mg 06/25/24 20:26 06/25/24 21:33 Ondansetron Inj 2 Mg/Ml Inj 2 Ml IV 07/25/24 20:25 4 mg Q6H PRN Administration NAUSEA OR VOMITING Protocol Plan The patient is a 33 YO M with no PMH presented with abdominal pain and nausea after having binge drinking 3 days back was found to have acute pancreatitis. # Acute pancreatitis 2/2 binge drinking -Presented with pain abdomen since 1 day -Associated with vomiting -Vitals are stable at the time of admission except for mildly elevated blood pressure 134/82 mmHg -Physical examination showed tenderness in the epigastric region -Labs showed elevated WBC 13.6, lipase > 3500 -CT abdomen/pelvis showed mild acute pancreatitis -[place] score 0 at the time of admission, re evaluate at 48hrs -Modified Artur score is 0 Plan -Continue on IV fluids, LR at 150 mL/h -Dilaudid 0.25 Mg as needed every 6 hrly -Clear liquid diet, advance as tolerated -Ondansetron as needed -Counseled on alcohol cessation # Mild transaminitis -AST and ALT are mildly elevated, likely in the setting of acute pancreatitis -Total bilirubin is within normal limits and ALP is 135 -Gallbladder ultrasound showed cholelithiasis without cholecystitis and CBD of 0.7 mm -On examination, patient does not have any right upper quadrant tenderness or Walsh sign, less likely CBD obstruction # Dyslipidemia -Triglyceride is 335, cholesterol 252, LDL 145 -Start atorvastatin 40 Mg on outpatient basis -Lifestyle modification Hospital Maintenance: Dispo: medsurg DVT ppx: SCD GI ppx: not needed Diet: Clear liquid diet, advance as tolerated IV lines: peripheral Code status: Full The case was discussed with my attending MD Raymond Marr MD PGY2 Internal Medicine Attending Provider Attestation/Addendum Patient here for alcoholic pancreatitis, will start clears. Continue pain control. Monitor labs, LFTS. No fever, check for leucocytosis.
[2024-06-27] MEDS: HYDROcodone/APAP 5/325 TABLET 1 TAB PO ×2 (15:19→21:36)
[2024-06-28] VITALS (7 sets, daily range): BP systolic 105–112; BP diastolic 58–67; PULSE 79–100; RESP 16–20; TEMP 36.4–36.7; O2SAT 92–96
[2024-06-28] MEDS: RINGERS LACTATED 1000 ML 1,000 ML 150 ML IV (04:02)
[2024-06-28] MEDS: HYDROcodone/APAP 5/325 TABLET 1 TAB PO (05:09)
[2024-06-28 06:01] LABS: Basophils # (Auto) 0.1 Thou/mm3 (0.0-0.2); Basophils % (Auto) 1 % (0-2.5); Eosinophils # (Auto) 0.3 Thou/mm3 (0.0-0.5); Eosinophils % (Auto) 3 % (0-10); Hematocrit 41.5 % (41.0-53.0); Hemoglobin 14.4 g/dL (13.5-16.0); Immature Granulocytes % (Auto) 0 % (0-0); Immature Granulocytes Auto 0.02 Thou/mm3 (0.00-0.00); Lymphocytes # (Auto) 1.3 Thou/mm3 (1.0-4.8); Lymphocytes % (Auto) 14 % (10-50); Mean Corpuscular HGB Conc 34.7 g/dl (31.0-37.0); Mean Corpuscular Hemoglobin 30.3 pg (25.0-35.0); Mean Corpuscular Volume 87 fL (80-100); Monocytes # (Auto) 1.1 Thou/mm3 (0.0-0.8); Monocytes % (Auto) 12 % (0-12); Neutrophils # (Auto) 6.6 Thou/mm3 (1.8-7.7); Neutrophils % (Auto) 70 % (37-80); Nucleated Red Blood Cell % 0 /100 WBC (0); Platelet Count 230 Thou/mm3 (140-440); RDW Standard Deviation 39.3 fL (35.1-43.9); Red Blood Count 4.76 Miln/mm3 (4.50-5.90); White Blood Count 9.4 Thou/mm3 (3.8-10.6)
[2024-06-28 06:47] LABS: Alanine Aminotransferase 83 U/L (10-49); Albumin, Serum 4.4 gm/dL (3.5-5.0); Albumin/Globulin Ratio 1.8 (1.2-2.2); Alkaline Phosphatase 103 U/L (46-116); Anion Gap 10 (7-16); Aspartate Amino Transferase 26 U/L (0-34); BUN/Creatinine Ratio 9 Ratio (12-20); Blood Urea Nitrogen 6 mg/dL (9-23); Calcium 9.2 mg/dL (8.3-10.6); Calcium (Corrected) 9.2 mg/dL (8.5-10.1); Carbon Dioxide 26.5 mMol/L (20.0-31.0); Chloride 102 mMol/L (98-107); Creatinine (Component) 0.7 mg/dL (0.6-1.3); Estimated Creatinine Clearance 171.1 mL/min (>60); Globulin 2.5 gm/dL (2.3-3.5); Glucose 90 mg/dL (74-106); Magnesium 1.9 mg/dL (1.6-2.6); Osmolality,Calculated 273 (275-295); Phosphorous 3.5 mg/dL (2.4-5.1); Potassium 3.5 mMol/L (3.4-5.1); Sodium 138 mMol/L (136-145); Total Protein 6.9 gm/dL (5.7-8.2); eGFR > 60 See Note
[2024-06-28] MEDS: POTASSIUM CHLORIDE 20 mEq TABCR 40 MEQ PO (09:30)
--- NOTE | 2024-06-28 16:48 | PD.RESDS ---
Planned Discharge Date 06/28/24 DS: Providers Provider Date of admission: 06/25/24 20:38 Primary care physician: Benjamin Trevino MD Admitting Provider: Johnny Humphrey DO Attending Provider on Admission: Pa Olson MD Attending Provider on DC: Raymond Morton MD Discharging Provider: Raymond Morton MD DS: Diagnosis Problem List Completed Was Problem List Reviewed/Reconciled?: Yes Hospital Course Hospital Course Hospital course: The patient is a 33-year-old male with no significant past medical history presented to ED with chief complaint of abdominal pain, nausea and vomiting was found to have acute pancreatitis secondary to alcohol use, and CT abdomen pelvis was suggestive of mild acute pancreatitis, and was treated with IV fluids, and was started on clear liquid diet followed by full liquid diet and transition to soft diet. His pain was controlled by IV Dilaudid and p.o. [place]. This morning, he reported that he is ready to go home, denied any abdominal pain. His discharge plan was discussed with him, and he agreed with the plans. He was discharged home. Problems: #Acute pancreatitis Plans: Please f/u with your PCP within 1 week of discharge. Continue with soft diet and advance as tolerated Tylenol 500mg every 6 hourly as needed for pain Ibuprofen 400mg for breakthrough pain every 8 hourly as needed -Recommended to to return back to emergency department if your symptoms persist or worsens. The patient's discharge was discussed with my attending physician MD Raymond Hidalgo MD, PGY2 Time Spent with Patient Time attestation: Total time spent providing and/or coordinating discharge services: Greater than 35 minutes Exam Vital Signs Temp Pulse Resp BP Pulse Ox O2 Del Method 97.5 F 80 18 109/58 L 95 Room Air 06/28/24 12:00 06/28/24 12:00 06/28/24 12:00 06/28/24 12:00 06/28/24 12:06/28/24 12:00 Narrative Exam General: No acute distress, Alert and Oriented x 3 HEENT: Moist mucous membranes, oropharynx clear Neck: Supple, No masses, No JVD CVS: S1S2 Regular rate and rhythm, No murmurs, rubs or gallops Lungs: Clear to auscultation with no accessory use, no wheeze no rhonchi Abd: Soft, NT/ND, +BS, no organomegaly Ext: No edema, warm and well perfused Skin: No rash Psych: Appropriate mood and affect Discharge Plan Plan Patient Disposition: HOME (Self Care) Patient condition on transfer: Stable Care Plan Goals: Please f/u with your PCP within 1 week of discharge. Continue with soft diet and advance as tolerated Tylenol 500mg every 6 hourly as needed for pain Ibuprofen 400mg for breakthrough pain every 8 hourly as needed -Recommended to to return back to emergency department if your symptoms persist or worsens. Prescriptions/Referrals Prescriptions/Med Rec: New acetaminophen 500 mg tablet 500 mg PO Q6H PRN (Reason: pain) Qty: 10 0RF ibuprofen 400 mg tablet 400 mg PO Q8H PRN (Reason: pain) Qty: 10 0RF Referrals: Benjamin Trevino MD [Primary Care Provider] - Patient/Caregiver Discharge Instructions Discharge Activity: activity as tolerated Education Materials: ED Pancreatitis Print Language: English Stand Alone Forms: Iveth Award Info., Patient Portal Info Letter Discharge Order Discharge Orders: Discharge (Routine); Ordered 06/28/24 Ordered By: Fabrizio (HOSPITALIST) Cherie Quality Discharge Quality Measures VTE prophylaxis MD Attestestation MD Attestation Face to face evaluation was performed by me. I have personally seen and examined the patient. I discussed the assessment and plan with the entire medicine team. I reviewed available medical records, imaging studies, laboratory results. I agree with the above subjective data, objective findings, assessment and plan except as corrected by me or noted below acute alcoholic pancreatitis epigastric pain due to above - clinically improved, pain is much better tolerating diet- dc on PRN nsaids, avoid alcohol, pcp fu after dc.
== END 2024-06-28 16:37 | disposition home or self-care (01) | DRG 282 ==
LOC: SERX 20:10 → SERHOLD 20:44 → S3NX 21:50
PROVIDERS: Nurse Practitioner Primary Care; Registered Nurse General Practice; Student in an Organized Health Care Education/Training Program; Admitting Provider Student in an Organized Health Care Education/Training Program; Emergency Provider Emergency Medicine; PCP Family Medicine; Visit Provider Internal Medicine
DX: K85.20 Alcohol induced acute pancreatitis without necrosis or infection (principal); R74.01 Elevation of levels of liver transaminase levels; E78.5 Hyperlipidemia, unspecified; K80.20 Calculus of gallbladder without cholecystitis without obstruction
CPT/HCPCS: 36415; 74176; 76705; 80053; 80061; 80307; 80320; 81001; 83605; 83615; 83690; 83735; 84100; 84443; 85025; 93225; 96361; 96374; 96375; 96376; 99285; J2270; J2405; J3480; J3490; J7030; J7120; A9270; G0480

== ENCOUNTER 2024-11-20 21:21 | Emergency (ER) | payer MEDICAID, SELFPAY ==
[2024-11-20 21:41] VITALS: BMI 34.0
[2024-11-20 21:42] VITALS: BP 131/80; PULSE 71; RESP 18; TEMP 36.8; O2SAT 99
--- NOTE | 2024-11-20 21:54 | XR_ITS ---
Examination: Abdomen sonogram, Limited Date and time of exam: November 21, 2019 510 0 4:00 PM INDICATIONS: Epigastric pain today Technique: Real-time perry scale transabdominal sonographic images of the upper abdomen obtained. Findings: Gallbladder sludge Gallstones Gallbladder wall 0.42 cm Common bile duct 0.5 cm Pancreatic head 3.1 cm Liver 16.9 cm no focal liver lesions Normal hepatopedal portal venous flow Patent IVC IMPRESSION: Cholelithiasis Borderline thickening gallbladder wall 0.4 cm, clinical correlation advised, consider HIDA scan or MRCP follow-up
--- NOTE | 2024-11-20 21:55 | PD.EDRME ---
Rapid Medical Screening Exam E Arrival date/time: 11/20/24 21:21 34M with history of pancreatitis presents to ED with several days of upper ab pain. Patient states it feels similar to when he had pancreatitis here, but states it's more LUQ. Patient also has non-bloody N/V. Patient went to PCP and was given gastritis meds; they have not provided relief. Chief Complaint: Abdominal Pain Vital signs: Vital Signs Temperature 98.3 F 11/20/24 21:42 Pulse Rate 71 11/20/24 21:42 Respiratory Rate 18 11/20/24 21:42 Blood Pressure 131/80 H 11/20/24 21:42 Pulse Oximetry (%) 99 11/20/24 21:42 Oxygen Delivery Method Room Air 11/20/24 21:42
--- NOTE | 2024-11-20 22:20 | PD.EDABDPN ---
ED Abdominal Pain RME/HPI General Chief Complaint: Abdominal Pain Stated complaint: UPPER ABD PAIN Time seen by provider: 11/20/24 22:16 Arrival date/time: 11/20/24 21:21 RME / HPI RME / HPI narrative: 11/20/24 21:21 34M with history of pancreatitis presents to ED with several days of upper ab pain. Patient states it feels similar to when he had pancreatitis here, but states it's more LUQ. Patient also has non-bloody N/V. Patient went to PCP and was given gastritis meds; they have not provided relief. -------- Dr. Prado?s Main ED Evaluation: 34yo male presents to the ED for a chief complaint of upper abdominal pain x 5 days. No radiation or migration. Patient reports associated nausea, but denies any V/D, fever, chills, cough, chest pain, shortness of breath, UTI symptoms or any other associated symptoms. States his last bowel movement was this morning. Patient reports drinking a 12 pack of beer per week, reporting he drank 12 beers today. Patient denies any tobacco or illicit drug use. Denies any previous abdominal surgeries. NKA. Related Data Previous Rx's ?Medication ?Instructions ?Recorded acetaminophen 500 mg tablet 500 mg PO Q6H PRN pain #10 tabs 06/27/24 ibuprofen 400 mg tablet 400 mg PO Q8H PRN pain #10 tabs 06/28/24 bisacodyl 10 mg rectal suppository 10 mg IL QDAY PRN constipation #3 11/21/24 (Dulcolax (bisacodyl)) ea ondansetron 4 mg disintegrating 4 mg PO Q12H PRN nausea and 11/21/24 tablet vomiting 3 days #6 tabs polyethylene glycol 3350 17 gram 17 g PO QDAY #14 ea 11/21/24 oral powder packet (Miralax) Allergies Allergy/AdvReac Type Severity Reaction Status Date / Time No Known Allergies Allergy Verified 11/20/24 21:21 Review of Systems Review of Systems Systems Reviewed: All systems reviewed, normal except as documented Past Medical History Past Medical History NEUROLOGIC: Negative Neurological Disorders CARDIAC: Negative Cardiac Disorders or Congestive Heart Failure RESPIRATORY: Negative Chronic Obstructive Pulmonary Disease (COPD) GASTROINTESTINAL: Positive Gastrointestinal Disorders, Gastroesophageal Reflux Disease and Obesity GENITOURINARY: Negative Renal Disease MUSCULOSKELETAL: Negative Musculoskeletal Disorders ENDOCRINE: Negative Diabetes Mellitus Type 1 or Diabetes Mellitus Type 2 Family History FAMILY HISTORY: Positive Family Cardiac Disorders (rob has htn) Social History SMOKING STATUS: Never smoker SECOND HAND EXPOSURE: No ED Exam Narrative Physical exam: GEN. APPEARANCE: The patient is alert awake oriented X-3 in no distress, sitting up in the chair, appears uncomfortable. Patient has good eye contact. Patient is cooperative. VITALS: All vitals were reviewed and the pulse ox is 99% on room air which is normal according to my interpretation. HEENT: Normocephalic, atraumatic. Pupils are equal and reactive. Oral mucosa is moist. Patent Nares NECK: Supple, nontender, no thyromegaly, no meningismus, no JVD CHEST: Symmetrical, atraumatic, and with equal expansion , Nontender on palpation no deformity and no crepitus. CARDIOVASCULAR: Heart regular rhythm no murmur or gallop rub or extra beats. LUNGS: Clear to auscultation bilaterally with symmetrical chest rise. No laboring tachypnea or wheezing. No intercostal subcostal retraction. No rales and no rhonchi. ABDOMEN: Soft, flat, upper abdominal tenderness to palpation, worse at the epigastric area; no flank tenderness, no guarding or rebound tenderness. There are no abnormal masses palpated. EXTREMITIES: Nontender. No edema. No cyanosis. Patient is able to move all 4 extremities well, with full ROM and good CSM. SKIN: Warm and dry, no jaundice or rashes noted. NEURO: Patient is LEYVA x 4, Cranial nerves II through XII grossly intact. There is no focal neurologic deficits noted. GCS is 15, PNS and CONTROL OPERATOR FLOW COAT appear grossly intact. PSYCHIATRIC: Patient is in normal mood and affect. Course Quality Measures none Orders Category Date Time Status KUB [XR abdomen 1V] Stat Exams 11/20/24 23:09 Completed US gall bladder Stat Exams 11/20/24 21:54 Completed CBC Stat Lab 11/20/24 22:34 Completed CMP [Comprehensive Metabolic Panel] Stat Lab 11/20/24 22:34 Completed Lipase Stat Lab 11/20/24 22:34 Completed Triglycerides Stat Lab 11/20/24 22:34 Completed Urinalysis, C/S if Indicated Stat Lab 11/20/24 22:34 Completed Calcium Carbonate Med 11/20/24 22:22 Discontinued 600 mg PO X1 ONE Ketorolac Inj [Toradol Inj] Med 11/21/24 00:35 Discontinued 15 mg IVP X1 ONE Lidocaine 2% Viscous [Xylocaine 2% Viscous] Med 11/20/24 22:22 Discontinued 10 ml PO X1 ONE Morphine Inj Med 11/20/24 21:55 Discontinued 5 mg IVP X1 ONE Ondansetron Inj [Zofran Inj] Med 11/20/24 21:55 Discontinued 4 mg IV X1 ONE Ondansetron Inj [Zofran Inj] Med 11/21/24 00:35 Discontinued 4 mg IVP X1 ONE Ondansetron Odt [Zofran Odt] Med 11/20/24 22:26 Discontinued 4 mg PO X1 ONE Ringers Lactated 1000 ml [Lactated Ringers] 1,000 ml Med 11/21/24 00:35 Active IV 999 mls/hr Simethicone [Mylicon Chew] Med 11/20/24 22:22 Discontinued 80 mg PO X1 ONE oxyCODONE/APAP 5/325 [Percocet 5/325] Med 11/21/24 00:15 Discontinued 1 tab PO X1 ONE Reevaluation(s) Reevaluation #1: Patient continues to complain of abdominal pain. LR, Toradol, and Zofran ordered. Time: 00:34 Reevaluation #2: Patient is hemodynamically stable and is now asymptomatic. Patient is stable to be discharged home. Time: 01:25 Vital Signs Vital signs: Vital Signs Temperature 98.3 F 11/20/24 21:42 Pulse Rate 71 11/20/24 21:42 Respiratory Rate 18 11/20/24 21:42 Blood Pressure 131/80 H 11/20/24 21:42 Pulse Oximetry (%) 99 11/20/24 21:42 Oxygen Delivery Method Room Air 11/20/24 21:42 Abdominal Pain MDM MDM Narrative MDM Narrative:: Scribe Attestation: 11/20/24 Constance Ellington am scribing for and in the presence of Dr. Prado. Patient data External records reviewed:: [facility] previous records (Per chart review, patient was admitted here on 06/25/24 for abdominal pain.) Clinical information provided by:: patient Social determinants that could affect healthcare access:: alcohol use Patient has the following chronic illnesses:: none How is presenting disease/condition affected by chronic disease/condition?: no chronic disease Evaluation data The following diagnostics were reviewed and interpreted by me:: lab results and radiology exam(s) Lab and/or radiology exams considered but not ordered:: none Interpretation Summary: WBC 11.4, CMP normal, Triglycerides 202, Lipase normal, UA unremarkable. Abdominal x-ray shows stool throughout the ascending colon, no evidence of bowel obstruction or perforation, according to my interpretation. [facility] Report Signed Patient: ARNOLDO GARVIN Record#: [id number] Birthdate: 1990 Age/Sex: 34 / M Location: [facility] Attending Dr: Ordering Physician: Yovanny Garcia PA-C Date of Service: 11/20/24 Procedure(s): US gall bladder Accession Number(s): [id number] cc: Kaveh Benavidez MD; Yovanny Garcia PA-C~ Examination: Abdomen sonogram, Limited Date and time of exam: November 21, 2019 510 0 4:00 PM INDICATIONS: Epigastric pain today Technique: Real-time perry scale transabdominal sonographic images of the upper abdomen obtained. Findings: Gallbladder sludge Gallstones Gallbladder wall 0.42 cm Common bile duct 0.5 cm Pancreatic head 3.1 cm Liver 16.9 cm no focal liver lesions Normal hepatopedal portal venous flow Patent IVC IMPRESSION: Cholelithiasis Borderline thickening gallbladder wall 0.4 cm, clinical correlation advised, consider HIDA scan or MRCP follow-up Dictated By: Kaveh Benavidez MD Signed By: <Electronically signed by Kaveh Benavidez MD in OV> 11/20/24 6270 Medications / Prescriptions Medications or Prescriptions considered but not ordered:: none Medication administrations:: Medication Administration History Lactated Ringer's (Lactated Ringers) 1,000 mls @ 999 mls/hr IV .Q1H1M ONE Stop: 11/21/24 01:35 Last Admin: 11/21/24 00:53 Dose: 999 mls/hr Documented By: NINFA Discontinued Medications Calcium Carbonate (Calcium Carbonate 600 Mg Tablet) 600 mg PO X1 ONE Stop: 11/20/24 22:23 Last Admin: 11/21/24 00:14 Dose: 600 mg Documented By: PAULINE Ketorolac Tromethamine (Ketorolac Inj 30 Mg/Ml Vial) 15 mg IVP X1 ONE Stop: 11/21/24 00:36 Last Admin: 11/21/24 00:54 Dose: 15 mg Documented By: NINFA Lidocaine HCl (Lidocaine Viscous 2% 15 Ml Udc) 10 ml PO X1 ONE Stop: 11/20/24 22:23 Last Admin: 11/20/24 23:13 Dose: 10 ml Documented By: PAULINE Morphine Sulfate (Morphine Sulf Inj 10 Mg/Ml Vial) 5 mg IVP X1 ONE Stop: 11/20/24 21:56 Last Admin: 11/20/24 23:03 Dose: Not Given Documented By: PAULINE Non-Admin Reason: Discontinued Ondansetron HCl (Ondansetron Inj 2 Mg/Ml Inj 2 Ml) 4 mg IV X1 ONE; Protocol Stop: 11/20/24 21:56 Last Admin: 11/20/24 23:04 Dose: Not Given Documented By: PAULINE Non-Admin Reason: Discontinued Ondansetron HCl (Ondansetron Odt 4 Mg Tabrap) 4 mg PO X1 ONE; Protocol Stop: 11/20/24 22:27 Last Admin: 11/20/24 23:13 Dose: 4 mg Documented By: PAULINE Ondansetron HCl (Ondansetron Inj 2 Mg/Ml Inj 2 Ml) 4 mg IVP X1 ONE; Protocol Stop: 11/21/24 00:36 Last Admin: 11/21/24 00:54 Dose: 4 mg Documented By: NINFA Oxycodone/Acetaminophen (Oxycodone/Apap 5/325 Tablet) 1 tab PO X1 ONE Stop: 11/21/24 00:16 Last Admin: 11/21/24 00:14 Dose: 1 tab Documented By: PAULINE Simethicone (Simethicone 80 Mg Chew) 80 mg PO X1 ONE Stop: 11/20/24 22:23 Last Admin: 11/21/24 00:14 Dose: 80 mg Documented By: PAULINE see above Consultations Consultation(s) initiated? (list below): No Diagnosis Differential diagnosis abdominal pain: diverticulitis, gastroenteritis, pancreatitis and small bowel obstruction Most likely diagnosis given after review of the tests above:: see clinical impression below Admission Indicated Admission indicated?: not indicated Admission Request Was there a request for admission?: No Disposition Plan Disposition Plan: Discharge Discharge Attestation Discharge Attestation: The patient and all family members were given an opportunity to ask questions and understood the discharge instructions. Discharge instructions specifically effects, indications for sooner follow up or return to the emergency department, and the expected course of current diagnosis. Patient condition: Stable Discharge Plan Plan Patient Disposition: HOME (Self Care) Prescriptions/Referrals Prescriptions/Med Rec: New ondansetron 4 mg tablet,disintegrating 4 mg PO Q12H PRN (Reason: nausea and vomiting) 3 Days Qty: 6 0RF bisacodyl [Dulcolax (bisacodyl)] 10 mg suppository 10 mg IL QDAY PRN (Reason: constipation) Qty: 3 0RF polyethylene glycol 3350 [Miralax] 17 gram powder in packet 17 g PO QDAY Qty: 14 0RF No Action acetaminophen 500 mg tablet 500 mg PO Q6H PRN (Reason: pain) Qty: 10 0RF ibuprofen 400 mg tablet 400 mg PO Q8H PRN (Reason: pain) Qty: 10 0RF Referrals: Benjamin Trevino MD [Primary Care Provider] - In 1 week Problem List Clinical Impression: Cholelithiasis, Nausea Patient/Caregiver Discharge Instructions Discharge Activity: activity as tolerated Education Materials: Treating Gallstones, ED Gallstones with Biliary Colic Additional Instructions: Por favor evitar la comida grasosa, el alcohol. Es mejor comer neal dieta blanda para evitar que regresen los sintomas. Por favor hacer zheng con un cirujano para la evaluacion y manejo de colico biliar resultando por los calculos en garcia vesicula. Si Print Language: Kazakh Stand Alone Forms: Iveth Award Info., Patient Portal Info Letter
[2024-11-20 23:08] LABS: Collection Type, Urine Clean Catch
--- NOTE | 2024-11-20 23:09 | XR_ITS ---
Examination: Abdomen AP single view Technique: AP portable upright abdomen, single view Exam date and time: November 20, 2024 at 11:27 PM INDICATIONS: Left upper abdominal pain today. FINDINGS: Moderate stool throughout the colon No obstruction No free air. No renal or ureteral calculi IMPRESSION: Nonobstructive bowel gas pattern
[2024-11-20 23:11] LABS: Basophils % (Auto) 0 % (0-2.5); Eosinophils # (Auto) 0.1 Thou/mm3 (0.0-0.5); Eosinophils % (Auto) 1 % (0-10); Hematocrit 43.1 % (41.0-53.0); Hemoglobin 15.6 g/dL (13.5-16.0); Immature Granulocytes % (Auto) 0 % (0-0); Immature Granulocytes Auto 0.05 Thou/mm3 (0.00-0.00); Lymphocytes # (Auto) 2.6 Thou/mm3 (1.0-4.8); Lymphocytes % (Auto) 23 % (10-50); Mean Corpuscular HGB Conc 36.2 g/dl (31.0-37.0); Mean Corpuscular Hemoglobin 30.4 pg (25.0-35.0); Mean Corpuscular Volume 84 fL (80-100); Monocytes # (Auto) 0.9 Thou/mm3 (0.0-0.8); Monocytes % (Auto) 8 % (0-12); Neutrophils # (Auto) 7.7 Thou/mm3 (1.8-7.7); Neutrophils % (Auto) 68 % (37-80); Nucleated Red Blood Cell % 0 /100 WBC (0); Platelet Count 261 Thou/mm3 (140-440); RDW Standard Deviation 38.3 fL (35.1-43.9); Red Blood Count 5.13 Miln/mm3 (4.50-5.90); White Blood Count 11.4 Thou/mm3 (3.8-10.6)
[2024-11-20] MEDS: ONDANSETRON ODT 4 MG TABRAP PO (23:13)
[2024-11-20] MEDS: LIDOCAINE VISCOUS 2% 15 ML UDC 10 ML PO (23:13)
[2024-11-20 23:32] LABS: Alanine Aminotransferase 34 U/L (10-49); Albumin, Serum 4.7 gm/dL (3.5-5.0); Albumin/Globulin Ratio 1.8 (1.2-2.2); Alkaline Phosphatase 75 U/L (46-116); Anion Gap 10 (7-16); Aspartate Amino Transferase 24 U/L (0-34); BUN/Creatinine Ratio 12 Ratio (12-20); Bilirubin,Total 0.6 mg/dL (0.3-1.2); Blood Urea Nitrogen 11 mg/dL (9-23); Calcium 9.1 mg/dL (8.3-10.6); Calcium (Corrected) 9.1 mg/dL (8.5-10.1); Carbon Dioxide 25.9 mMol/L (20.0-31.0); Chloride 104 mMol/L (98-107); Creatinine (Component) 0.9 mg/dL (0.6-1.3); Estimated Creatinine Clearance 135.2 mL/min (>60); Globulin 2.6 gm/dL (2.3-3.5); Glucose 105 mg/dL (74-106); Lipase 24 U/L (12-53); Osmolality,Calculated 278 (275-295); Potassium 3.4 mMol/L (3.4-5.1); Sodium 140 mMol/L (136-145); Total Protein 7.3 gm/dL (5.7-8.2); Triglycerides 202 mg/dL (30-150); eGFR > 60 See Note
[2024-11-20 23:54] LABS: Bacteria,Urine Rare; Bilirubin,Urine Negative (Negative); Blood,Urine Negative (Negative); Clarity,Urine Clear (Clear/Hazy); Color,Urine Yellow (Lt Yel-Yel); Culture Indicated,Urine Not Indicated; Glucose, Urine Negative (Negative); Ketones,Urine Trace (Negative); Leukocyte Esterase,Urine Negative (Negative); Nitrite,Urine Negative (Negative); Protein,Urine Trace (Neg - Trace); RBC,Urine 4 /hpf (0-3); Specific Gravity,Urine 1.034 (1.001-1.035); Squamous Epithelial Cell,Urine < 1 /hpf (0-5); WBC,Urine < 1 /hpf (0-5)
[2024-11-21] MEDS: SIMETHICONE 80 MG CHEW PO (00:14)
[2024-11-21] MEDS: CALCIUM CARBONATE 600 MG TABLET PO (00:14)
[2024-11-21] MEDS: oxyCODONE/APAP 5/325 TABLET 1 TAB PO (00:14)
[2024-11-21] MEDS: RINGERS LACTATED 1000 ML 1,000 ML 999 ML IV (00:53)
[2024-11-21] MEDS: KETOROLAC INJ 30 MG/ML VIAL 15 MG IVP (00:54)
[2024-11-21] MEDS: ONDANSETRON INJ 2 MG/ML INJ 2 ML 4 MG IVP (00:54)
[2024-11-21 00:55] VITALS: BP 146/103; PULSE 66; RESP 18; O2SAT 97
== END 2024-11-21 01:46 | disposition home or self-care (01) ==
PROVIDERS: Physician Assistant; Emergency Provider Emergency Medicine; PCP Family Medicine
DX: K80.20 Calculus of gallbladder without cholecystitis without obstruction (principal); R10.12 Left upper quadrant pain
CPT/HCPCS: 36415; 74018; 76705; 80053; 80320; 81001; 83690; 84478; 85025; 96374; 96375; 99284; J1885; J2405; J3490; J7120; Q0162; A9270; G0480

== ENCOUNTER 2024-11-21 04:31 | Day surgery (SDC) | payer MEDICAID, SELFPAY ==
[2024-11-21] VITALS (11 sets, daily range): BP systolic 102–136; BP diastolic 73–84; PULSE 70–101; RESP 12–20; TEMP 36.4–37.3; O2SAT 95–99; BMI 34.7
--- NOTE | 2024-11-21 04:34 | EDNOTE_ITS ---
ED Abdominal Pain RME/HPI General Chief Complaint: Abdominal Pain Stated complaint: UPPER ABD PAIN AND VOMITING Time seen by provider: 11/21/24 04:34 Arrival date/time: 11/21/24 04:31 RME / HPI RME / HPI narrative: Dr. Prado?s Main ED Evaluation: 34yo male presents to the ED for a chief complaint of epigastric pain. Patient was just discharged after being seen for the same complaint, reporting he initially felt better when he was discharged, but endorses his pain returned, so he came in for evaluation. Patient reports associated N/V. Denies any other associated symptoms. NKA. Related Data Previous Rx's ?Medication ?Instructions ?Recorded acetaminophen 500 mg tablet 500 mg PO Q6H PRN pain #10 tabs 06/27/24 ibuprofen 400 mg tablet 400 mg PO Q8H PRN pain #10 t abs 06/28/24 bisacodyl 10 mg rectal suppository 10 mg PA QDAY PRN c onstipation #3 11/21/24 (Dulcolax (bisacodyl)) ea ibuprofen 800 mg tablet 800 mg PO Q12H PRN pain 3 da ys #6 11/21/24 tabs ondansetron 4 mg disintegrating 4 mg PO Q12H PRN nause a and 11/21/24 tablet vomiting 3 days #6 tabs polyethylene glycol 3350 17 gram 17 g PO QDAY #14 ea 0 11/21/24 oral powder packet (Miralax) Allergies Allergy/AdvReac Type Severity Reaction Status Date / Time No Known Allergies Allergy Verified 11/21/24 04:31 Review of Systems Review of Systems Systems Reviewed: All systems reviewed, normal except as documented Past Medical History Past Medical History NEUROLOGIC: Negative Neurological Disorders CARDIAC: Negative Cardiac Disorders or Congestive Heart Failure RESPIRATORY: Negative Chronic Obstructive Pulmonary Disease (COPD) GASTROINTESTINAL: Positive Gastrointestinal Disorders, Gastroesophageal Reflux Disease and Obesity GENITOURINARY: Negative Renal Disease MUSCULOSKELETAL: Negative Musculoskeletal Disorders ENDOCRINE: Negative Diabetes Mellitus Type 1 or Diabetes Mellitus Type 2 Family History FAMILY HISTORY: Positive Family Cardiac Disorders Social History SMOKING STATUS: Never smoker SECOND HAND EXPOSURE: No ED Exam Narrative Physical exam: GEN. APPEARANCE: The patient is alert awake oriented X-3 in no distress, sitting up in the chair, appears uncomfortable. Patient has good eye contact. Patient is cooperative. VITALS: All vitals were reviewed and the pulse ox is % on room air which is normal according to my interpretation. HEENT: Normocephalic, atraumatic. Pupils are equal and reactive. Oral mucosa is moist. Patent Nares NECK: Supple, nontender, no thyromegaly, no meningismus, no JVD CHEST: Symmetrical, atraumatic, and with equal expansion , Nontender on palpation no deformity and no crepitus. CARDIOVASCULAR: Heart regular rhythm no murmur or gallop rub or extra beats. LUNGS: Clear to auscultation bilaterally with symmetrical chest rise. No laboring tachypnea or wheezing. No intercostal subcostal retraction. No rales and no rhonchi. ABDOMEN: Soft, flat, upper abdominal tenderness to palpation, worse at the epigastric area; no flank tenderness, no guarding or rebound tenderness. There are no abnormal masses palpated. EXTREMITIES: Nontender. No edema. No cyanosis. Patient is able to move all 4 extremities well, with full ROM and good CSM. SKIN: Warm and dry, no jaundice or rashes noted. NEURO: Patient is LEYVA x 4, Cranial nerves II through XII grossly intact. There is no focal neurologic deficits noted. GCS is 15, PNS and AIR [employer]W SUPERVISOR appear grossly intact. PSYCHIATRIC: Patient is in normal mood and affect. Course Quality Measures none Orders Category Date Time Status CT Screening NOW Care 11/21/24 04:58 Active EKG (ED ONLY) *Do not use* NOW Care 11/21/24 04:57 Completed Insert IV NOW Care 11/21/24 04:[address] abdomen pelvis w con Stat Exams 11/21/24 04:58 Ordered EKG (ED Only) Stat Exams 11/21/24 04:57 Ordered CBC Stat Lab 11/21/24 04:48 Received CMP [Comprehensive Metabolic Panel] Stat Lab 11/21/24 04:48 Ordered Lipase Stat Lab 11/21/24 04:48 Ordered Troponin I Stat Lab 11/21/24 04:48 Ordered Urinalysis, C/S if Indicated Stat Lab 11/21/24 04:57 Ordered Metoclopramide Inj [Reglan Inj] Med 11/21/24 04:57 Discontinued 5 mg IV X1 ONE Morphine Inj Med 11/21/24 04:35 Discontinued 4 mg IVP Q1H STA Morphine Inj Med 11/21/24 04:50 Discontinued 4 mg IVP X1 ONE Morphine Inj Med 11/21/24 04:57 Discontinued 4 mg IVP X1 ONE Ringers Lactated 1000 ml [Lactated Ringers] 1,000 ml Med 11/21/24 04:57 Discontinued IV 999 mls/hr Vital Signs Vital signs: Vital Signs Temperature 98.7 F 11/21/24 04:31 Pulse Rate 70 11/21/24 04:31 Respiratory Rate 20 11/21/24 04:31 Blood Pressure 136/82 H 11/21/24 04:31 Pulse Oximetry (%) 99 11/21/24 04:31 Oxygen Delivery Method Room Air 11/21/24 04:31 Abdominal Pain MDM MDM Narrative MDM Narrative:: Scribe Attestation: 11/21/24 - Marifer, Constance Trevino am scribing for and in the presence of Dr. Prado. Patient is a 34-year-old male is in the emerged part with concerns for recurrence of epigastric pain. Patient was seen in the emergency department earlier today, was diagnosed with gallstones. Had otherwise reassuring workup labs. Patient was discharged was tolerating oral intake, pain was well- controlled. Patient is hemodynamically stable uncomfortable secondary to pain and nausea. Provided patient with medications for symptom relief, ordered repeat labs as well as CT abdomen pelvis with contrast. Patient signed out pending results of his workup and safe dispo. Patient data External records reviewed:: [facility] previous records (Per chart review, patient was just discharged from the ED after being seen for the same complaint.) Clinical information provided by:: patient Social determinants that could affect healthcare access:: none Patient has the following chronic illnesses:: none How is presenting disease/condition affected by chronic disease/condition?: no chronic disease Evaluation data The following diagnostics were reviewed and interpreted by me:: lab results, radiology exam(s) and EKG tracing(s) Lab and/or radiology exams considered but not ordered:: none Interpretation Summary: Diagnostics pending at sign out. EKG done at 0511, NSR, rate of 74, normal intervals, significant motion artifact, nonspecific ST-T wave changes, no acute ischemia, according to my interpretation. Medications / Prescriptions Medications or Prescriptions considered but not ordered:: none Medication administrations:: Medication Administration History Discontinued Medications Lactated Ringer's (Lactated Ringers) 1,000 mls @ 999 mls/hr IV .Q1H1M ONE Stop: 11/21/24 05:57 Last Admin: 11/21/24 05:33 Dose: Not Given Documented By: LEMUEL Non-Admin Reason: Cancelled by Provider Metoclopramide HCl (Metoclopramide Inj 5 Mg/Ml Vial 2 Ml) 5 mg IV X1 ONE; Protocol Stop: 11/21/24 04:58 Last Admin: 11/21/24 05:31 Dose: 5 mg Documented By: LEMUEL Morphine Sulfate (Morphine Sulf Inj 10 Mg/Ml Vial) 4 mg IVP Q1H STA Stop: 11/21/24 04:36 Last Admin: 11/21/24 05:32 Dose: Not Given Documented By: LEMUEL Non-Admin Reason: Cancelled by Provider Morphine Sulfate (Morphine Sulf Inj 10 Mg/Ml Vial) 4 mg IVP X1 ONE Stop: 11/21/24 04:51 Last Admin: 11/21/24 05:32 Dose: Not Given Documented By: AC Non-Admin Reason: Cancelled by Provider Morphine Sulfate (Morphine Sulf Inj 10 Mg/Ml Vial) 4 mg IVP X1 ONE Stop: 11/21/24 04:58 Last Admin: 11/21/24 05:32 Dose: 4 mg Documented By: LEMUEL see above Consultations Consultation(s) initiated? (list below): No Diagnosis Differential diagnosis abdominal pain: abdominal pain Most likely diagnosis given after review of the tests above:: Symptomatic cholelithiasis Admission Indicated Admission indicated?: not indicated Admission Request Was there a request for admission?: No Disposition Plan Disposition Plan: other (specify) (Signed out to Dr. Simon at 0600 pending work- up.) Discharge Plan Prescriptions/Referrals Prescriptions/Med Rec: No Action acetaminophen 500 mg tablet 500 mg PO Q6H PRN (Reason: pain) Qty: 10 0RF ibuprofen 400 mg tablet 400 mg PO Q8H PRN (Reason: pain) Qty: 10 0RF ondansetron 4 mg tablet,disintegrating 4 mg PO Q12H PRN (Reason: nausea and vomiting) 3 Days Qty: 6 0RF bisacodyl [Dulcolax (bisacodyl)] 10 mg suppository 10 mg PA QDAY PRN (Reason: constipation) Qty: 3 0RF polyethylene glycol 3350 [Miralax] 17 gram powder in packet 17 g PO QDAY Qty: 14 0RF ibuprofen 800 mg tablet 800 mg PO Q12H PRN (Reason: pain) 3 Days Qty: 6 0RF Referrals: Benjamin Trevino MD [Primary Care Provider] - In 1 week Problem List Clinical Impression: Cholelithiasis Patient/Caregiver Discharge Instructions Print Language: Luxembourgish
--- NOTE | 2024-11-21 04:58 | XR_ITS ---
Examination: CT abdomen with intravenous contrast CT pelvis with intravenous contrast 2-D coronal reconstructions 2-D sagittal reconstructions Date and time of exam:November 21, 2024 0756 hours Comparison June 25, 2024 INDICATIONS: Upper abdominal pain with nausea today. CTDI: vol (mGy) 11.2 DLP: (mGycm) 758 Technique: Multiple axial sections of the abdomen and pelvis have been obtained. 64 slice high-resolution scanner used. 3 mm axial sections have been obtained, post intravenous injection 60 cc [id number] 2-D sagittal, coronal reconstructions obtained. Low dose protocols were performed. One or more of the following dose reduction techniques were used; automated exposure control, adjustment of the mA and/or KV according to patient size, use of iterative reconstruction technique. Findings: No focal liver or splenic lesions Gallbladder wall appears thickened No pancreatic or adrenal mass No renal or ureteral calculi, no hydronephrosis Aorta normal size No pericecal inflammatory change No bowel obstruction No diverticulitis Urinary bladder intact Osseous structures intact IMPRESSION: Recommend repeat gallbladder sonography to exclude acute cholecystitis
[2024-11-21] MEDS: METOCLOPRAMIDE INJ 5 MG/ML VIAL 2 ML IV (05:31)
[2024-11-21] MEDS: MORPHINE SULF INJ 10 MG/ML VIAL 4 MG IVP (05:32)
[2024-11-21 06:30] LABS: Alanine Aminotransferase 31 U/L (10-49); Albumin, Serum 4.7 gm/dL (3.5-5.0); Albumin/Globulin Ratio 1.8 (1.2-2.2); Alkaline Phosphatase 72 U/L (46-116); Anion Gap 9 (7-16); Aspartate Amino Transferase 22 U/L (0-34); BUN/Creatinine Ratio 11 Ratio (12-20); Blood Urea Nitrogen 10 mg/dL (9-23); Calcium 9.7 mg/dL (8.3-10.6); Calcium (Corrected) 9.7 mg/dL (8.5-10.1); Carbon Dioxide 26.2 mMol/L (20.0-31.0); Chloride 101 mMol/L (98-107); Creatinine (Component) 0.9 mg/dL (0.6-1.3); Estimated Creatinine Clearance 136.5 mL/min (>60); Globulin 2.6 gm/dL (2.3-3.5); Glucose 132 mg/dL (74-106); Lipase 23 U/L (12-53); Osmolality,Calculated 272 (275-295); Potassium 3.7 mMol/L (3.4-5.1); Sodium 136 mMol/L (136-145); Total Protein 7.3 gm/dL (5.7-8.2); Troponin I < 0.002 ng/mL (0.0-0.045); eGFR > 60 See Note
--- NOTE | 2024-11-21 06:49 | PD.EDADDENDU ---
Emergency Room Addendum <Shiloh Horton - Last Filed: 11/21/24 16:54> Addendum Narrative: I took over the care from Dr. Prado, the previous shift physician at 0600 hours on 11/21/2024.? See previous notes for complete H & P and ED course. I reviewed all diagnostic test results. My review of the CT report, report indicates to repeat gallbladder sonography to exclude acute cholecystitis. Blood tests and urine tests Diagnoses include Cholecystitis Treatment here included Significant improvement I discussed the case with our hospitalist.? About the presentation and exam and diagnostics and treatments here.? And need of further care in the hospital. Will accept the patient. Indra Simon MD <Indra Simon MD - Last Filed: 11/23/24 02:50> Addendum Narrative: I took over the care from Dr. Prado, the previous shift physician at 0600 on 11/21/2024.? See previous notes for complete H & P and ED course. I reviewed all diagnostic test results. My review of the abdominal CT report is acute cholecystitis. My review of the gallbladder US report yesterday is cholelithiasis. Blood tests and urine tests remarkable for WBC 16.4. Diagnoses include Cholecystitis. Treatment here from me included Dilaudid and Zofran and Zosyn. Patient remained stable. I discussed the case with our surgeon and our our hospitalist.? About the presentation and exam and diagnostics and treatments here.? And need of further care in the hospital. Will accept the patient. Indra Simon MD
[2024-11-21 07:46] LABS: Basophils % (Auto) 0 % (0-2.5); Eosinophils % (Auto) 0 % (0-10); Hematocrit 45.3 % (41.0-53.0); Hemoglobin 16.5 g/dL (13.5-16.0); Immature Granulocytes % (Auto) 0 % (0-0); Immature Granulocytes Auto 0.06 Thou/mm3 (0.00-0.00); Lymphocytes # (Auto) 1.4 Thou/mm3 (1.0-4.8); Lymphocytes % (Auto) 9 % (10-50); Mean Corpuscular HGB Conc 36.4 g/dl (31.0-37.0); Mean Corpuscular Hemoglobin 30.6 pg (25.0-35.0); Mean Corpuscular Volume 84 fL (80-100); Monocytes % (Auto) 6 % (0-12); Neutrophils # (Auto) 13.9 Thou/mm3 (1.8-7.7); Neutrophils % (Auto) 85 % (37-80); Nucleated Red Blood Cell % 0 /100 WBC (0); Platelet Count 288 Thou/mm3 (140-440); RDW Standard Deviation 38.5 fL (35.1-43.9); Red Blood Count 5.39 Miln/mm3 (4.50-5.90); White Blood Count 16.4 Thou/mm3 (3.8-10.6)
[2024-11-21] MEDS: ONDANSETRON INJ 2 MG/ML INJ 2 ML 4 MG IVP (08:09)
[2024-11-21] MEDS: HYDROmorphone INJ 2 MG/ML VIAL IVP (08:09)
[2024-11-21] MEDS: PIPER/TAZO 3.375 GM PREMIX 3.375 GM/50 ML BAG IV (11:18)
--- NOTE | 2024-11-21 11:37 | PC.NURSE ---
WAITING ON IV PUMP TO START FLUIDS, MULTIPLE CALLS MADE TO GET ONE
[2024-11-21] MEDS: CEFOXITIN 2 GM in SODIUM CHLORIDE 0.9% (Popper) 50 ML IV (11:39)
[2024-11-21] MEDS: KCL 20 mEq/L in D5-1/2NS 20 MEQ/1,000 ML BAG 75 MEQ IV (12:02)
--- NOTE | 2024-11-21 14:06 | ESHP_ITS ---
HPI Date of Admission 11/21/2024 Chief Complaint Chief Complaint: Right upper quadrant abdominal pain with nausea and vomiting HPI 34-year-old male presented to the emergency department worsening abdominal pain. His pain started 2 days ago in the right upper quadrant and epigastric and radiating to his back. He has had multiple episodes of nausea and vomiting and has not been able to eat or tolerate any food. Earlier this year patient had similar symptoms he was admitted for pancreatitis and was managed conservatively. He was noted to have elevation of WBC, liver and pancreatic enzymes are unremarkable. He was noted to have gallstones with gallbladder wall thickening and edema. Review of Systems Constitutional Constitutional: Denies chills and Denies fever(s) Cardiovascular Cardiovascular: Denies chest pain Respiratory Respiratory: Denies cough Gastrointestinal Gastrointestinal: Reports abdominal pain, Reports nausea and Reports vomiting Genitourinary Genitourinary: Denies difficulty urinating Hematologic/Lymphatic Hematologic/Lymphatic: Denies easy bleeding and Denies easy bruising Past Medical History Surgical History OTHER SURGICAL HX: No surgeries in the past Social History SMOKING STATUS: Never smoker SUBSTANCE USE: does not use ALCOHOL: Current Meds Home Medications and Allergies Allergies Allergy/AdvReac Type Severity Reaction Status Date / Time No Known Allergies Allergy Verified 11/21/24 04:31 Exam Vital Signs Temp Pulse Resp BP Pulse Ox O2 Del Method O2 Flow Rate 98.2 F 76 16 134/74 H 97 Nasal Cannula 2 11/21/24 10:35 11/21/24 10:35 11/21/24 10:35 11/21/24 10:35 11/21/24 10:35 11/21/24 10:35 11/21/24 10:35 Constitutional Constitutional: no acute distress Routine HEENT Exam Eye: Present PERRL (Anicteric sclera) Routine Respiratory Exam Respiratory: Present CTA bilaterally Routine Cardiovascular Exam Cardiovascular: Present RRR Routine Abdominal Exam Abdominal: Present soft, normoactive bowel sounds and tenderness (Right upper quadrant tenderness to palpation with guarding, positive Walsh sign); Absent distended Results Results: Laboratory Laboratory results: results reviewed Results: Imaging CT scan - abdomen: report reviewed and image reviewed CT scan - pelvis: report reviewed and image reviewed Assessment & Plan Problem List (1) Calculus of gallbladder with acute cholecystitis without obstruction: Status: Acute Plan Will take patient to the operating room for laparoscopic possible open cholecystectomy. Risks include but not limited to infection, bleeding, injury to bowel, liver, stomach, bile duct, retained stone, bile leak, abdominal sepsis and or abdominal abscess, need for further procedure and or operation discussed with the patient via certified court/medical interpreter. Benefits and alternatives explained to him, all his questions answered, he agreed and consented to proceed with the operation. Quality Measures Quality Measures none
[2024-11-21 15:27] LABS: Collection Type, Urine Clean Catch
[2024-11-21 15:36] LABS: Amorphous Crystals,Urine Present (Absent); Bilirubin,Urine Negative (Negative); Blood,Urine Negative (Negative); Clarity,Urine Clear (Clear/Hazy); Color,Urine Yellow (Lt Yel-Yel); Culture Indicated,Urine Not Indicated; Glucose, Urine Negative (Negative); Ketones,Urine Trace (Negative); Leukocyte Esterase,Urine Negative (Negative); Nitrite,Urine Negative (Negative); Protein,Urine Trace (Neg - Trace); RBC,Urine 1 /hpf (0-3); Squamous Epithelial Cell,Urine < 1 /hpf (0-5); Urobilinogen,Urine Negative mg/dL (0.0-1.0); WBC,Urine 2 /hpf (0-5)
[2024-11-21 15:46] LABS: Specific Gravity,Urine 1.025 (1.001-1.035)
--- NOTE | 2024-11-21 16:07 | PD.SUROPNT ---
Date of Procedure 11/21/24 Pre Op Diagnosis Cholelithiasis with acute cholecystitis Post Op Diagnosis Cholelithiasis with acute cholecystitis Procedure Laparoscopic cholecystectomy Findings Inflamed, distended and thick-walled gallbladder with multiple gallstones and pericholecystic edema Procedure Description Patient was brought into the operating room in supine position. After administration of general endotracheal anesthesia abdomen was prepped and draped in standard surgical manner. A Veress needle was inserted through the umbilicus and pneumoperitoneum was obtained up to 15 mmHg. The Veress needle was then removed, a 5 mm infraumbilical incision was made and the 5mm trocar was inserted. Laparoscopic camera was placed. Under direct visualization a laparoscopic camera a 10 mm trocar was placed in subxiphoid and two 5 mm trocars placed in right upper quadrant. The gallbladder was identified and was noted to be distended, thick-walled with multiple gallstones and pericholecystic edema. The gallbladder was decompressed with an aspirator. It was retracted cephalad and laterally. Dissection started near the infundibulum of gallbladder where cystic duct and gallbladder junction clearly identified. The cystic duct was circumferentially dissected off the peritoneum and surrounding inflammatory tissue. The critical view of safety was clearly demonstrated. Cystic duct was then divided between 2 endoclips proximally and one distally. The cystic artery was similarly dissected and divided. The gallbladder was then from the liver bed using electrocautery. The gallbladder was then placed inside an Endo Catch and removed from the abdomen utilizing subxiphoid trocar site. The area was copiously and thoroughly washed and irrigated, all the fluid was suctioned and the suction fluid returned clear. Hemostasis achieved using electrocautery. Endoclips noted be in place and intact without any bleeding or any leakage. Hemostasis was adequate and satisfactory. The subxiphoid trocar sites fascial defect was closed with 0 Vicryl using Endo Closure device. Instruments and trocars removed, pneumoperitoneum was evacuated and the incisions closed with 4-0 Monocryl in subcuticular fashion. Instrument needle and sponge counts were all reported to be correct X2. Patient tolerated the procedure well, was extubated, breathing spontaneously and without difficulty and was transferred to postanesthesia care in stable condition. Anesthesia GETA and local Pathology / specimen Other (Gallbladder and contents) Estimated Blood Loss 25 Condition Stable Disposition PACU Surgeon Ej Lipscomb MD Surgical Staff Operation Date: 11/21/24 13:30 <No data on this case meets the specified criteria>
--- NOTE | 2024-11-21 16:15 | SUR.PHASEI ---
1615 Patient arrived to recovery resting comfortably in [facility], on oxygen 10L via oxy mask with an oral airway/nasal airway in place, breathing unlabored, vital signs stable, dressing intact to abdomen; dermabond, no bleeding noted, report received from Chris SEXTON and Dr. Epps
--- NOTE | 2024-11-21 16:35 | SUR.PHASEI ---
1635 Report given to Carmen RN, to assume care of patient, patient sleeping comfortably in [facility], on oxygen 6L via oxy mask, breathing unlabored, vital signs stable, dressing intact; no bleeding noted
[2024-11-21] MEDS: HYDROcodone/APAP 5/325 TABLET 1 TAB PO (17:33)
--- NOTE | 2024-11-21 17:45 | SUR.PHASEII ---
Pt. meets criteria for discharge, VSS, provided pain medication for pain level of 7/10 with movement, lap sites x4 CDI, no active bleeding or redness noted, IV discontinued without complications, pt. tolerating oral fluids. Provided discharge instructions to pt. and pt.'s , verbalized understanding. Escorted pt. to vehicle via w/c with all of belongings by staff.
== END 2024-11-21 17:45 | disposition home or self-care (01) ==
LOC: SERX 10:57 → S2EX 13:41
PROVIDERS: Emergency Medicine; Emergency Provider Emergency Medicine; PCP Family Medicine; Referring Provider Surgery; Visit Provider Surgery
PROC: 0FT44ZZ Resection of Gallbladder, Percutaneous Endoscopic Approach (ICD-10-PCS; CPT 47562; principal; 2024-11-21 13:15)
DX: K80.10 Calculus of gallbladder with chronic cholecystitis without obstruction (principal); Z87.19 Personal history of other diseases of the digestive system; Z01.810 Encounter for preprocedural cardiovascular examination
CPT/HCPCS: 47562; 36415; 74177; 80053; 80307; 81001; 82550; 83605; 83690; 84484; 85025; 93005; 96365; 96367; 96375; 99285; A4217; A4649; J0131; J0694; J1100; J1171; J2270; J2371; J2405; J2543; J2704; J2765; J3010; J3480; J3490; J7050; Q9967; A9270